=== PATIENT | female | born 1995 | race Caucasian/White ===

== ENCOUNTER → 2018-03-08 13:23 | Observation (INO) ==
--- NOTE | 2018-03-08 13:16 | OB/GYN Progress Note ---
Date of Encounter: 03/08/18 Time of Encounter: 13:13 - Assessment and Plan (1) 38 weeks gestation of Current Visit: Yes Status: Acute IUP at 38 weeks and 6 days Category 1 tracing Irregular contractions noted on monitor No cervical change since exam in office two days ago Discharge home with labor precautions and kick counts Follow up for induction date next week as scheduled or prn Subjective - Subjective Interval history: at 38 weeks 6 days presents to triage with complaints sharp pains in her abdomen that woke her up at 0100 this morning. States pain is mild and occurs every two hours and lasts "a few seconds." Denies vaginal bleeding or leaking fluid, states baby is moving well. Denies [place], visual disturbance and epigastric pain. Antepartum ROS: contractions Objective - Exam FHR: category 1 Auscultation: bilateral: normal Abdomen: Present: gravid Uterus: Present: normal Cervical dilation: 1 Cervix effacement: 60 station: -2 Comments: Cervix is in posterior position, moderate consistency
== END | disposition home or self-care (01) ==
LOC: 1NENULAB
PROVIDERS: ADMIT Obstetrics & Gynecology; ATTEND Obstetrics & Gynecology

== ENCOUNTER 2018-03-12 05:00 | Inpatient (IN) ==
[2018-03-12] MEDS ORDERED: Naloxone 0.4 MG/ML INJ IVP PRN (05:19)
[2018-03-12] MEDS ORDERED: Metoclopramide 10 MG/2 ML VIAL IVP PRN (05:19)
[2018-03-12] MEDS ORDERED: *HR* Nalbuphine 10 MG/ML AMPUL IVP PRN (05:19)
[2018-03-12] MEDS ORDERED: Famotidine 20 MG/2 ML VIAL IVP PRN (05:19)
[2018-03-12] MEDS ORDERED: miSOPROStol 25 MCG TABLET PO PRN (05:23)
[2018-03-12] MEDS ORDERED: D5% in 0.45% NACL 1,000 ML IVC SCH (05:30)
[2018-03-12 06:22] LABS: Basophils # 0.1 K/mcL (0.0-0.2); Basophils % 0.5 %; Eosinophils # 0.4 K/mcL (0.0-0.6); Eosinophils % 2.6 %; Hematocrit 29.4 % (35.3-44.9); Hemoglobin 9.7 g/dL (11.5-15.4); Immature Granulocytes % 1.7 % (0-4); Lymphocytes # 2.8 K/mcL (0.6-4.6); Lymphocytes % 18.9 %; Mean Corpuscular Volume 81.9 fL (83.0-100.0); Mean Platelet Volume 10.1 fL (9.4-12.4); Monocytes # 0.9 K/mcL (0.0-1.3); Monocytes % 6.1 %; Neutrophils # 10.5 K/mcL (1.6-8.9); Platelet Count 350 K/mcL (140-400); Red Blood Count 3.59 M/mcL (3.82-4.97); Red Cell Distribution Width 15.6 % (11.5-14.5); Segmented Neutrophils % 70.2 %
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
[2018-03-12] MEDS ORDERED: miSOPROStol 100 MCG TABLET PO ONE (08:25)
--- NOTE | 2018-03-12 08:52 | OB Labor Progress Note ---
Date of Encounter: 03/12/18 Time of Encounter: 08:49 Labor Progress Note - Subjective Subjective: The patient reports being comfortable, not experiencing any specific contractions. Fetus is active. She is status post 50mcgs of Cytotec orally at 0623. - Vital Signs Vital Signs: Afebrile, vital signs stable - Cervix Cervix: 1+/70/-2, vertex - Heart Tones Heart Tones: 120s baseline, CAT 1 - [place]: No contractions seen - Interventions Interventions: 39 week 3 day IUP for induction of labor secondary to obesity, excessive weight gain and LGA fetus. - Plan Plan: Polo catheter balloon inserted into cervix with guidewire without difficulty. 60 mL of sterile water placed. Patient reports comfort post procedure. No ruptured membranes or vaginal bleeding noted. Continue induction of labor
--- NOTE | 2018-03-12 09:08 | Anesthesia Evaluation PreOp ---
Date of Encounter: 03/12/18 Time of Encounter: 09:01 - Past History Planned Operation: eze Cardiac History: Denies any Significant Hx, Hyperlipidemia Pulmonary History: Denies Any Significant HX CLIENT TECHNICAL PROFESSIONAL History: Denies Any Significant HX Other Medical History: Other (morbid obesity) Anesthesia History: No Prior Anesthetic Complications, Past Anesthesia : Yes () Alcohol Use: none Drug use: none Medications and Allergies Pnv95/Ferrous Fumarate/FA [ Vitamin Tablet] 1 each PO DAILY 11/12/17 [ History] 3 Allergy/AdvReac Type Severity Reaction Status Date / Time No Known Allergies Allergy Verified 03/12/18 05:41 - Meds/Allergy Pre-op Review Medications Reviewed: Yes Allergies Reviewed: Yes Beta Blockers on Current Med List: No Anesthesia Results - Labs 03/12/18 06:05 Anesthesia Exam O2 Sat Height 1.78 m Weight 128.2 kg Height: 70 Weight: 282 - HEENT Pupil (Motor): Pupils equal Mallampati: II Teeth: Normal Oral Opening: Greater than 3 - CLIENT TECHNICAL PROFESSIONAL LOC: Oriented CLIENT TECHNICAL PROFESSIONAL Motor: Normal RUE, Normal LUE, Normal RLE, Normal LLE, Normal Face CLIENT TECHNICAL PROFESSIONAL Sensory: Normal: RUE, LUE, RLE, LLE, Face - Cardiac Rhythm: Regular Murmur: None JVD: No Carotid Bruit: No - Pulmonary Breath Sounds: bilateral Clear Respiratory Effort: Symmetrical Anesthesia Assess/Plan ASA Score: 3 Modified [place] Scale for Level of Consciousness: Cooperative, oriented, and tranquil Anesthetic Plan: Regional
[2018-03-12] MEDS ORDERED: *HR* FentaNYL (PF) 100 MCG/2 ML VIAL EP ONE (09:09)
[2018-03-12] MEDS ORDERED: EPHEDrine 50 MG/ML VIAL IVP PRN (09:09)
[2018-03-12] MEDS ORDERED: Bupivacaine-MPF 0.25% 10 ML VIAL EP ONE (09:09)
[2018-03-12] MEDS ORDERED: Epidural Premix (fent/bupiv) 110 ML EP SCH (09:15)
[2018-03-12 14:00] LABS: Amphetamine Screen,Urine Negative ng/mL (Cutoff=1000); Barbiturate Screen,Urine Negative ng/mL (Cutoff=200); Benzodiazepines Screen,Urine Negative ng/mL (Cutoff=200); Cannabinoid Screen,Urine Negative ng/mL (Cutoff = 50); Cocaine Screen,Urine Negative ng/mL (Cutoff= 300); Opiate Screen,Urine Negative ng/mL (Cutoff=300); Phencyclidine Screen,Urine Negative ng/mL (Cutoff=25)
[2018-03-12] MEDS ORDERED: Oxytocin 20 units/ LR 1000 mL 20 UNIT/1,000 ML BAG IVC SCH (14:45)
[2018-03-12] MEDS ORDERED: Ringers Solution, Lactated 1,000 ML ONE ×2 (14:48→19:28)
[2018-03-12] MEDS ORDERED: Oxytocin 20 units/ LR 1000 mL 20 UNIT/1,000 ML BAG IVC ONE (14:48)
[2018-03-12] MEDS ORDERED: *HR* FentaNYL (PF) 100 MCG/2 ML VIAL ONE (17:33)
[2018-03-12] MEDS ORDERED: Bupivacaine-MPF 0.25% 10 ML VIAL ONE (17:33)
[2018-03-12] MEDS ORDERED: Epidural Premix (fent/bupiv) 110 ML EP ONE (17:34)
--- NOTE | 2018-03-12 17:42 | OB Labor Progress Note ---
Date of Encounter: 03/12/18 Time of Encounter: 17:39 Labor Progress Note - Subjective Subjective: Patient experiencing moderate to severe pain with contractions. She is requesting epidural now. - Cervix Cervix: 5-6/70/-2 - Heart Tones Heart Tones: Baseline 130 Moderate variability Accelerations present 15 x 15 Decelerations absent FHR category I - [place]: Contractions every 3 minutes and palpate moderate - Interventions Interventions: Polo bulb out SVE - Plan Plan: Patient may have epidural Continue expectant management AROM and IUPC after epidural placement Anticipate Dr. Orellana updated and agrees with plan of care
--- NOTE | 2018-03-12 17:59 | Anesthesia Procedures ---
Date of Encounter: 03/12/18 Time of Encounter: 17:35 Procedures: Anesthesia - Epidural/Spinal Patient ID/Chart reviewed: Yes Patient examined: Yes OB Eval: Gestational age: 39 OB Eval: Contractions: Non-stressed pattern Consent Obtained: Yes Supplemental Oxygen: None/Room Air Site Prep: Aseptic Technique, 0.5% Chlorhexidine/Alcohol Patient position: upright Local Anesthetic: Lidocaine 1% Amount of Local Anesthetic used: 3 Touhy Needle Gauge: 18 Touhy Needle Depth (cm): 7 Catheter Depth at Skin (cm): 14 Test Dose (1.5% Lido + Epi): Volume given (mls): 3 Test Dose Result: Negative Loading Dose: 0.25% Marcaine (mls): 6 Loading Dose: Fentanyl (mcg): 100 Loading Dose Administered: Thru Touhy Needle Infusion Med: 0.125% Bupivacaine w/ 2 mcg/ml Fentanyl Infusion Rate (mls/hr): [address]: Tegaderm Interspace Used: L3-L4 Loss of Resistance (LALO): Yes Blood: No CSF: No Paresthesia: No
--- NOTE | 2018-03-12 18:22 | OB Labor Progress Note ---
Date of Encounter: 03/12/18 Time of Encounter: 18:20 Labor Progress Note - Subjective Subjective: Patient comfortable with epidural - Cervix Cervix: 6/70/-2 - Heart Tones Heart Tones: Baseline 130 Moderate variability Accelerations present 15x15 Decelerations absent FHR Category I - [place]: Contractions every 3 minutes and palpate moderate - Interventions Interventions: SVE AROM - clear and moderate ammount IUPC placed - Plan Plan: Continue expectant management Titrate pitocin per protocol Use peanut ball for position changes Anticipate
--- NOTE | 2018-03-12 23:29 | OB/GYN Procedure Note ---
Delivery - Delivery Date: 03/12/18 Provider: Isa Orellana Intrapartum events: none Delivery induction: modi, misoprostol Delivery augmentation: rupture of membranes, pitocin Delivery monitor: external FHT, external uterine, internal uterine Anesthesia: epidural Estimated Blood Loss: 700 - (s) Infant A Delivery Date: 03/12/18 Infant Delivery Time: 22:57 Presentation: vertex Position: DELMER Route of delivery: Gender: Male Viability: Viable Pounds: 8 Ounces: 0 Weight Gram: 3.64 kg at 1 minute: 8 at 5 mins: 9 Shoulder Dystocia: not encountered Specimens collected: cord blood Placenta: spontaneous, uterine exploration Cord: 3 umbilical vessels - Repair Episiotomy: none Laceration Description: Perineal - 3rd Degree, Labial (Superficial) - Complications Delivery complications: hemorrhage, uterine atony Delivery comments: The patient was complete and pushing with epidural anesthesia with a spontaneous vaginal delivery in the DELMER position of a vigorous male infant weighing 8 lbs.0 oz. with Apgars of 8 at 1 minute and 9 at 5 minutes. Infant was placed on the maternal abdomen. The cord was clamped and cut after pulsations ceased. Cord blood obtained. The placenta was delivered spontaneous and intact. Following placental delivery there was a large gush of fluid. Left vaginal wall laceration was hemostatic and not repaired. There was a third-degree perineal laceration with rectum intact. The transverse peroneus was reapproximated with several 3-0 Vicryl sutures in interrupted fashion. The deep laceration was then repaired with 3-0 Vicryl interrupted fashion. The remaining laceration was then closed with 3-0 Vicryl in a running fashion. EBL 700 mL's. Patient had IV Pitocin running immediately after delivery of and oral Cytotec was given after placenta was delivered in brisk bleeding was noted. Patient and are recovering stable condition in the LDR - Disposition Mom disposition: stable in LDR [place] disposition: stable in LDR
[2018-03-13] MEDS ORDERED: miSOPROStol 100 MCG TABLET PO SCH (01:59)
[2018-03-13] MEDS ORDERED: Benzocaine/Menthol 56 GM AEROSOL SPRAY TP PRN (01:59)
[2018-03-13] MEDS ORDERED: Acetaminophen 325 MG TABLET PO PRN (01:59)
[2018-03-13] MEDS ORDERED: Rho Immune Globulin 1,500 UNIT SYRINGE IM PRN (01:59)
[2018-03-13] MEDS ORDERED: Oxytocin 20 units/ LR 1000 mL 20 UNIT/1,000 ML BAG IVC SCH (01:59)
[2018-03-13] MEDS: Ibuprofen 600 MG TABLET PO SCH ×3 (02:09→18:06)
[2018-03-13 06:05] LABS: Basophils # 0.1 K/mcL (0.0-0.2); Basophils % 0.4 %; Eosinophils # 0.2 K/mcL (0.0-0.6); Eosinophils % 1.1 %; Hematocrit 25.5 % (35.3-44.9); Hemoglobin 8.4 g/dL (11.5-15.4); Immature Granulocytes % 0.9 % (0-4); Lymphocytes # 2.1 K/mcL (0.6-4.6); Lymphocytes % 10.6 %; Mean Corpuscular HGB Conc 32.9 g/dL (31.6-35.5); Mean Corpuscular Hemoglobin 26.7 pg (28.0-33.3); Mean Platelet Volume 10.3 fL (9.4-12.4); Monocytes # 1.2 K/mcL (0.0-1.3); Neutrophils # 16.1 K/mcL (1.6-8.9); Platelet Count 287 K/mcL (140-400); Red Blood Count 3.15 M/mcL (3.82-4.97); Red Cell Distribution Width 15.8 % (11.5-14.5)
[2018-03-13] MEDS ORDERED: Prenatal Vit/FA 1 EACH TABLET PO SCH (09:00)
--- NOTE | 2018-03-13 09:06 | OB/GYN Progress Note ---
Date of Encounter: 03/13/18 Time of Encounter: 09:04 - Assessment and Plan (1) Vaginal delivery Current Visit: Yes Status: Acute Stable PPD#1 Continue current care Anticipate DC tomorrow. (2) anemia Current Visit: Yes Status: Acute Will increase iron to BID Subjective - Subjective Patient reports: appetite normal, voiding normally, pain well controlled, ambulating normally [place]: doing well Objective - Latest Vital Signs Latest vital signs: Vital Signs Temp Pulse Resp BP Pulse Ox 03/13/18 07:54 98.1 F 76 16 125/76 03/13/18 03:57 98.5 F 87 18 116/73 97 03/13/18 02:45 98.2 F 90 16 111/71 96 03/13/18 01:45 98.3 F 98 18 111/77 97 Intake and Output 03/12/18 03/13/18 03/13/18 23:59 07:59 15:59 Other: Weight 125 kg Patient Weight 03/13/18 23:59 Weight 125 kg - Exam Lungs: bilateral: normal Chest: Normal S1, Normal S2 Extremities: Present: normal Abdomen: Present: normal appearance Uterus: Present: normal, firm Uterus Position: At Umbilicus - Labs Labs: Laboratory Results - last 24 hr 03/12/18 03/13/18 03/13/18 12:44 00:00 05:46 WBC 19.8 H RBC 3.15 L Hgb 8.4 L Hct 25.5 L MCV 81.0 L MCH 26.7 L MCHC 32.9 RDW 15.8 H Plt Count 287 MPV 10.3 Immature Gran % 0.9 Seg Neutrophils % 81.0 Lymphocytes % 10.6 Monocytes % 6.0 Eosinophils % 1.1 Basophils % 0.4 Neutrophils # 16.1 H Lymphocytes # 2.1 Monocytes # 1.2 Eosinophils # 0.2 Basophils # 0.1 Urine Opiates Screen Negative Ur Barbiturates Screen Negative Ur Phencyclidine Scrn Negative Ur Amphetamines Screen Negative U Benzodiazepines Scrn Negative Urine Cocaine Screen Negative U Marijuana (THC) Screen Negative Baby's Blood Type O RH POSITIVE Mother's Blood Type B RH POSITIVE Rhogam Indicated NO
[2018-03-14] MEDS: Ibuprofen 600 MG TABLET PO SCH ×2 (00:17→06:08)
[2018-03-14 08:07] VITALS: BP 123/71
--- NOTE | 2018-03-14 10:12 | Discharge Summary ---
Date of Encounter: 03/14/18 Time of Encounter: 10:07 - Discharge Diagnosis (1) Vaginal delivery Priority: Primary Status: Acute Comments: S/P vaginal delivery Day 2. Doing well, tolerating regular diet. States mild cramping with good pain control with po meds. Ambulating and voiding without difficulty. Paasing gas, no BM. Lochia light and without clots. in arms, bottlefeeding with no problems. Discharge as guest, baby will not be discharged today. - Discharge Medications Prescriptions: Ibuprofen [Motrin] 600 mg PO Q6HR #30 tablet Docusate [Colace] 100 mg PO BID #20 capsule Ferrous Sulfate 325 mg PO BIDWM #120 tablet Home Medications: Pnv95/Ferrous Fumarate/FA [ Vitamin Tablet] 1 each PO DAILY 11/12/17 [ History] Acetaminophen [Tylenol] 650 mg PO Q6HR PRN tablet 03/14/18 [Rx] Benzocaine/Menthol [place] [Dermoplast [place]] 1 appl TP QID PRN aerosol 03/14/18 [Rx] Docusate [Colace] 100 mg PO BID #20 capsule 03/14/18 [Rx] Ferrous Sulfate 325 mg PO BIDWM #120 tablet 03/14/18 [Rx] Ibuprofen [Motrin] 600 mg PO Q6HR #30 tablet 03/14/18 [Rx] Allergies/Adverse Reactions: 3 Allergy/AdvReac Type Severity Reaction Status Date / Time No Known Allergies Allergy Verified 03/12/18 05:41 Data Procedures and tests throughout hospitalization: Laboratory Tests 03/12/18 03/12/18 03/13/18 06:05 12:44 00:00 WBC 15.0 H RBC 3.59 L Hgb 9.7 L Hct 29.4 L MCV 81.9 L MCH 27.0 L MCHC 33.0 RDW 15.6 H Plt Count 350 MPV 10.1 Immature Gran % 1.7 Seg Neutrophils % 70.2 Lymphocytes % 18.9 Monocytes % 6.1 Eosinophils % 2.6 Basophils % 0.5 Neutrophils # 10.5 H Lymphocytes # 2.8 Monocytes # 0.9 Eosinophils # 0.4 Basophils # 0.1 Urine Opiates Screen Negative Ur Barbiturates Screen Negative Ur Phencyclidine Scrn Negative Ur Amphetamines Screen Negative U Benzodiazepines Scrn Negative Urine Cocaine Screen Negative U Marijuana (THC) Screen Negative Baby's Blood Type O RH POSITIVE Mother's Blood Type B RH POSITIVE Rhogam Indicated NO 03/13/18 05:46 WBC 19.8 H RBC 3.15 L Hgb 8.4 L Hct 25.5 L MCV 81.0 L MCH 26.7 L MCHC 32.9 RDW 15.8 H Plt Count 287 MPV 10.3 Immature Gran % 0.9 Seg Neutrophils % 81.0 Lymphocytes % 10.6 Monocytes % 6.0 Eosinophils % 1.1 Basophils % 0.4 Neutrophils # 16.1 H Lymphocytes # 2.1 Monocytes # 1.2 Eosinophils # 0.2 Basophils # 0.1 Urine Opiates Screen Ur Barbiturates Screen Ur Phencyclidine Scrn Ur Amphetamines Screen U Benzodiazepines Scrn Urine Cocaine Screen U Marijuana (THC) Screen Baby's Blood Type Mother's Blood Type Rhogam Indicated Date of admission: 03/12/18 05:05 Primary care physician: Naya Ford CNP Consults: 03/13/18 01:59 Consult to Electrophysiologist [CONS] Routine Comment: Vaginal delivery, consult needed - Patient Status Disposition: Home, Self-Care Condition: Good Functional capacity at discharge: independent ambulation Overall status at discharge: patient is progressing back to baseline - Discharge Instructions Follow Up With: Naya Ford CNP [Primary Care Provider] - Isa Orellana MD [Partnered Physician] - - Diet and Activity Activity: increase activity as tolerated Diet: advance to your usual diet Hospital Course Reason for admission: induction of labor, IUP at term Delivery: Episiotomy: none Laceration: 3rd degree Other procedures: none complications: none Discharge diagnosis: IUP at term delivered baby: male Time spent discussing smoking cessation with patient: 3 to 10 minutes Time Attestation: Total time spent providing and/or coordinating discharge services: Time Spent: Less than 30 minutes Exam - Constitutional Vitals: Temp Pulse Resp BP Pulse Ox 97.9 F 83 16 123/71 96 03/14/18 08:06 03/14/18 08:06 03/14/18 08:06 03/14/18 08:06 03/13/18 20:20 General appearance IM: A&O X 3, no acute distress, answers questions appropriately - Respiratory Respiratory exam: Present: CTAB - Cardiovascular Cardiovascular exam IM: Present: RRR - GI/Abdominal GI/Abdominal exam IM: hyperactive bowel sounds - Rectal Rectal exam: deferred - Uterus Position: At Umbilicus, Midline - Extremities Exam Extremities exam IM: Present: full ROM, normal inspection, radial pulses palpable and symmetrical - Neurological Exam Neurological exam: alert, normal gait, oriented X3, reflexes normal
== END 2018-03-14 12:30 | disposition home or self-care (01) | DRG 560 ==
LOC: 1NENULAB 05:05 → 1NENUOBS 03-13 03:05
PROVIDERS: ADMIT Obstetrics & Gynecology; ATTEND Obstetrics & Gynecology